=== PATIENT | male | born 1990 | race Caucasian/White ===

== ENCOUNTER 2017-06-29 22:29 | Emergency (ER) | payer BC ==
--- NOTE | 2017-06-29 23:05 | C.PDOC ---
History Of Present Illness 27 year old male presents to the ED for evaluation of left shoulder pain which began earlier today. Patient states he attempted to reach for the ball while playing basketball, when he accidentally dislocated his shoulder. Patient denies any other injuries at this time. Time Seen by Provider: 06/29/17 22:45 Chief Complaint (Nursing): Upper Extremity Problem/Injury History Per: Patient History/Exam Limitations: no limitations Onset/Duration Of Symptoms: Hrs Current Symptoms Are (Timing): Still Present Quality: "Pain" Additional History Per: Patient Past Medical History Reviewed: Historical Data, Nursing Documentation, Vital Signs Vital Signs: Last Vital Signs Temp 98.0 F 06/29/17 22:36 Pulse 107 H 06/29/17 22:36 Resp 20 06/29/17 22:36 BP 131/79 06/29/17 22:36 Pulse Ox 96 06/29/17 23:12 - Medical History PMH: No Chronic Diseases Surgical History: No Surg Hx Family History: States: Unknown Family Hx - Social History Hx Alcohol Use: No Hx Substance Use: No - Immunization History Hx Tetanus Toxoid Vaccination: No Hx Influenza Vaccination: No Hx Pneumococcal Vaccination: No Review Of Systems Musculoskeletal: Positive for: Shoulder Pain (left) Physical Exam - Physical Exam Appears: Non-toxic, No Acute Distress Skin: Normal Color, Warm, Dry Head: Atraumatic, Normacephalic Eye(s): bilateral: Normal Inspection Neck: Supple Chest: Symmetrical, No Deformity, No Tenderness Cardiovascular: Rhythm Regular, No Murmur Respiratory: Normal Breath Sounds, No Rales, No Rhonchi, No Wheezing Extremity: No Normal ROM (limited in left shoulder secondary to pain ), Capillary Refill (less than 2 seconds ), Other (anterior dislocation noted to left shoulder ) Pulses: Left Brachial: Normal, Left Radial: Normal Neurological/Psych: Oriented x3, Normal Speech, Normal Cognition, Normal Motor, Normal Sensation ED Course And Treatment O2 Sat by Pulse Oximetry: 96 (on RA) Pulse Ox Interpretation: Normal - Other Rad Left shoulder X-Ray: Interpreted by Me Interpretation: Initial images show anterior dislocation of left shoulder. Post reduction images shoud normal position. No evidence of fracture. Reevaluation Time: 23:26 Reassessment Condition: Improved Orthopedic Time Out: Side verified, Site verified Performed by: Attending Physician Diagnosis: Dislocation Location: Anterior (left shoulder ) Capillary refill: Normal Distal Sensation: Normal Distal Motor Function: Normal Capillary Refill: Normal Compartment: Normal Distal Sensation: Normal Distal Motor Function: Normal Notes:: left shoulder dislocation was reduced using Modified Milch Maneuver. Patient tolerated well with no complications. Disposition - Disposition Referrals: Magdiel Rose MD [Staff Provider] - Disposition: HOME/ ROUTINE Disposition Time: 23:26 Condition: IMPROVED Additional Instructions: Wear the shoulder immobilizer and be sure not to lift your arm over your head. Follow up with the orthopedist for medical clearance. Instructions: Shoulder Dislocation (DC) Forms: [employer] (Czech), Work Excuse - Clinical Impression Clinical Impression: Shoulder dislocation - Scribe Statement The provider has reviewed the documentation as recorded by the Scribe (Stefani Jackson) Provider Attestation: All medical record entries made by the Scribe were at my direction and personally dictated by me. I have reviewed the chart and agree that the record accurately reflects my personal performance of the history, physical exam, medical decision making, and the department course for this patient. I have also personally directed, reviewed, and agree with the discharge instructions and disposition.
[2017-06-29 23:36] VITALS: BP 138/80; PULSE 66; RESP 16; TEMP 97.9; O2SAT 98
--- NOTE | 2017-06-30 08:41 | RAD ---
PROCEDURE: Radiographs of the Left Shoulder HISTORY: post reduction COMPARISON: 05/01/2017 at 22:46 hours FINDINGS: BONES: Prior anterior inferior left humeral head dislocation glenoid fossa now reduced Durga midline per this single frontal view. No gross fractures appreciated. JOINTS: Glenohumeral and acromioclavicular joints preserved. No osteoarthritis. SOFT TISSUES: Normal. OTHER FINDINGS: None. IMPRESSION: Prior left anterior inferior shoulder dislocation - reduced
--- NOTE | 2017-06-30 08:43 | RAD ---
PROCEDURE: Radiographs of the Left Shoulder HISTORY: R/O DISLOCATION COMPARISON: No prior. FINDINGS: BONES: No fracture appreciated. JOINTS: Left humeral head anteroinferiorly dislocated SOFT TISSUES: Normal. OTHER FINDINGS: None. IMPRESSION: Left shoulder anterior inferior dislocation
== END 2017-06-29 23:38 | disposition home or self-care (01) ==
LOC: C.ER 22:29
DX: S43.015A Anterior dislocation of left humerus, initial encounter (principal); X50.0XXA Overexertion from strenuous movement or load, initial encounter; Y93.67 Activity, basketball; Y92.39 Other specified sports and athletic area as the place of occurrence of the external cause